=== PATIENT | male | born 1930 | race Caucasian/White ===

== ENCOUNTER 2018-12-24 10:44 | Day surgery (SDC) | payer MEDICARE ==
[~2018-12-24] VITALS: Ht 152.4 cm; Wt 78.0 kg
[2018-12-24] MEDS ORDERED: SODIUM CHLORIDE 0.9% 1,000 ML IV ONE ×2 (11:24→11:30)
[2018-12-24] MEDS ORDERED: IRON18TA PO (11:55)
[2018-12-24] MEDS ORDERED: MELO-107 PO (11:55)
[2018-12-24] MEDS ORDERED: CHOL50004 PO (11:55)
[2018-12-24] MEDS ORDERED: GABA-529 PO (11:55)
[2018-12-24] MEDS ORDERED: ASPI-1182 PO (11:55)
[2018-12-24] MEDS ORDERED: LEVO50 PO (11:55)
[2018-12-24] MEDS ORDERED: PROP20TA18 PO (11:55)
[2018-12-24] MEDS ORDERED: MIRT15 PO (11:55)
[2018-12-24] MEDS ORDERED: PROPOFOL 1% 20 ML VIAL IVP ONE (12:00)
[2018-12-24] MEDS ORDERED: LIDOCAINE/PF 2% 5 ML VIAL INJ ONE (12:00)
== END 2018-12-24 15:40 | disposition home or self-care (01) ==
LOC: SURGERY 10:44
PROVIDERS: ATTEND Internal Medicine Gastroenterology
DX: K29.50 Unspecified chronic gastritis without bleeding (principal); E03.9 Hypothyroidism, unspecified; M19.90 Unspecified osteoarthritis, unspecified site; I10 Essential (primary) hypertension; G47.33 Obstructive sleep apnea (adult) (pediatric); Z99.3 Dependence on wheelchair; Z79.899 Other long term (current) drug therapy; Z88.6 Allergy status to analgesic agent; Z90.49 Acquired absence of other specified parts of digestive tract; Z98.890 Other specified postprocedural states
CPT/HCPCS: 43239; 88305; 88312; 93005; C1769; J2704; J3490; J7030